=== PATIENT | female | born 1945 | race Caucasian/White ===

== ENCOUNTER 2017-11-21 19:28 | Emergency (ER) | payer MEDICARE, OTHER ==
[2017-11-21 20:00] VITALS: BP 155/80
--- NOTE | 2017-11-21 20:57 | UC ---
Hip/Pelvis Pain - HPI Summary HPI Summary: Patient presents with right hip and leg pain after falling this morning while bowling. Can ambulate but with pain. 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 Onset/Duration: Sudden Onset, Lasting Hours, Still Present Timing: Constant Severity Initially: Moderate Severity Currently: Moderate Pain Intensity: 8 Pain Scale Used: 0-10 Numeric Character Of Pain: Sharp Aggravating Factor(s): Movement, Weight Bearing Alleviating Factor(s): Rest Associated Signs And Symptoms: Negative: Swelling, Redness, Bruising, Knee Pain - Allergies/Home Medications Allergies/Adverse Reactions: Allergies Allergy/AdvReac Type Severity Reaction Status Date / Time No Known Allergies Allergy Verified 11/21/17 20:01 Home Medications: Home Medications Acetaminophen TAB* [Tylenol TAB*] 500 mg PO Q4H PRN 11/21/17 [History Confirmed 11/21/17] PMH/Surg Hx/FS Hx/Imm Hx Endocrine History: Dyslipidemia Cardiovascular History: Hypertension - Surgical History Surgical History: Yes Surgery Procedure, Year, and Place: lumpectomy x 4 to both breasts which were benign; left hip replacement 2012 [facility] [place] colonoscopy - Family History Known Family History: Positive: Cardiac Disease, Hypertension, Renal Disease - kidney stones, father - Social History Alcohol Use: None Substance Use Type: None Smoking Status (MU): Light Every Day Tobacco Smoker Type: Cigarettes Amount Used/How Often: occassionally one cigarette per day Length of Time of Smoking/Using Tobacco: Since she was 16 years old Have You Smoked in the Last Year: Yes When Did the Patient Quit Smoking/Using Tobacco: December 2013 Household Exposure Type: Cigarettes - Immunization History Most Recent Influenza Vaccination: Fall 2014 Most Recent Tetanus Shot: UNKNOWN Most Recent Pneumonia Vaccination: 2014 Review of Systems Constitutional: Negative Skin: Negative Respiratory: Negative Cardiovascular: Negative Gastrointestinal: Negative Musculoskeletal: Arthralgia, Decreased ROM All Other Systems Reviewed And Are Negative: Yes Physical Exam Triage Information Reviewed: Yes Appearance: Well-Appearing, Well-Nourished, Pain Distress - mod Vital Signs: Initial Vital Signs Temp 98.7 F 11/21/17 19:55 Pulse 70 11/21/17 19:55 Resp 16 04/18/18 19:55 BP 155/80 11/21/17 19:55 Pulse Ox 97 11/21/17 19:55 Vital Signs Reviewed: Yes Eyes: Positive: Conjunctiva Clear ENT: Positive: Hearing grossly normal Neck: Positive: Supple Respiratory: Positive: No respiratory distress, No accessory muscle use Cardiovascular: Positive: Pulses Normal Abdomen Description: Positive: Soft Musculoskeletal: Positive: No Edema, ROM Limited @ - right hip, Other: - TTP RIGHT POSTERIOR THIGH Neurological: Positive: Alert Psychological: Positive: Age Appropriate Behavior Skin: Negative: rashes Diagnostics - Radiology RIGHT HIP AND FEMUR XRAYS Xray Interpretation: No Acute Changes Radiology Interpretation Completed By: Radiologist Hip Injury Course/Dx - Differential Dx/Diagnosis Provider Diagnoses: RIGHT HIP CONTUSION Discharge - Sign-Out/Discharge Documenting (check all that apply): Discharge - Discharge Plan Condition: Stable Disposition: HOME Patient Education Materials: Hip Contusion (ED) Referrals: Maximiliano Carlson MD [Medical Doctor] - If Needed Talha Velasco MD [Primary Care Provider] - If Needed Additional Instructions: X-rays today unremarkable. [id number] ibuprofen as needed for discomfort. Rest, ice. Follow-up with orthopedics if you're not improving over the next 1-2 weeks. - Billing Disposition and Condition Condition: STABLE Disposition: HOME
--- NOTE | 2017-11-21 21:33 | RAD ---
INDICATION: Fall, right hip pain. COMPARISON: Comparison is made with a prior study from October 31, 2013. TECHNIQUE: An AP view of the pelvis and frontal and lateral views of the right hip were obtained. FINDINGS: The bones are in normal alignment. No fracture is seen. There is [id number] osteoarthritic change in the right hip. The patient is status post total left hip replacement surgery. IMPRESSION: NO EVIDENCE FOR FRACTURE, IF THE PATIENT'S SYMPTOMS PERSIST RECOMMEND FOLLOW-UP IMAGING.
--- NOTE | 2017-11-21 21:36 | RAD ---
INDICATION: Right femur injury. TECHNIQUE: 2 views of the right femur were obtained. FINDINGS: The bones are normal alignment. No fracture is seen. IMPRESSION: NO EVIDENCE FOR FRACTURE.
== END 2017-11-21 22:09 | disposition home or self-care (01) ==
LOC: UCEAST 19:28
DX: S70.01XA Contusion of right hip, initial encounter (principal); W18.30XA Fall on same level, unspecified, initial encounter; Y93.54 Activity, bowling; Y92.39 Other specified sports and athletic area as the place of occurrence of the external cause; E78.5 Hyperlipidemia, unspecified; I10 Essential (primary) hypertension; Z96.642 Presence of left artificial hip joint; Z87.891 Personal history of nicotine dependence
CPT/HCPCS: 99211; G0463

== ENCOUNTER 2019-08-08 06:33 | Day surgery (SDC) | payer MEDICARE, OTHER ==
[~2019-08-08 06:33] MED LIST: Buffered Lidocaine 1% SYRIN* 1 ML/SYRINGE INTRADERM ONE; Dexamethasone TAB* 4 MG PO ONE; DiMENhydriNATE IV* 50 MG/ML VIAL IV PUSH PRN; HYDROmorphone INJ1* 1 MG/ML SYRINGE IV PRN; Lactated Ringers 1000 ML Bag* 1,000 ML IV SCH; Naloxone* 0.4 MG/ML 1 ML VIAL IV PRN; Ondansetron ODT TAB* 4 MG PO ONE; PROCHLORPERAZINE INJ 5 MG/ML 2 ML VIAL IV PRN; fentaNYL* 50 MCG/ML 2 ML VIAL (100 MCG VIAL) IV PRN; oxyCODONE TAB* 5 MG TAB PO PRN
[2019-08-08] MEDS ORDERED: Dexamethasone TAB* 4 MG ONE (06:45)
[2019-08-08] MEDS ORDERED: Ondansetron ODT TAB* 4 MG ONE (06:45)
[2019-08-08] MEDS ORDERED: Midazolam* 1 MG/ML 2 ML VIAL (2 MG) ONE (08:22)
[2019-08-08] MEDS ORDERED: fentaNYL* 50 MCG/ML 2 ML VIAL (100 MCG VIAL) ONE (08:22)
[2019-08-08] MEDS ORDERED: KETAMINE HCL* 50 MG/ML 10 ML VIAL ONE (08:22)
[2019-08-08] MEDS ORDERED: Propofol* 10 MG/ML 20 ML BTL ONE (08:48)
[2019-08-08] MEDS ORDERED: Ketorolac INJ* 30 MG/ML 1 ML VIAL ONE (08:48)
[2019-08-08] MEDS ORDERED: Lidocaine 2% PF * 5 ML VIAL ONE (08:48)
[2019-08-08] MEDS ORDERED: Phenylephrine 40 MCG/ML SYRINGE ONE (08:48)
[2019-08-08] MEDS ORDERED: Acetaminophen IV 1GM/100ML * 100 ML ONE (08:48)
[2019-08-08 10:17] VITALS: BP 137/87
--- NOTE | 2019-08-09 17:14 | OP ---
DATE OF OPERATION: 08/08/19 - [facility] DATE OF : 47 SURGEON: Kalyan Evangelista MD ANESTHESIA: General anesthetic with laryngeal mask airway. PRE-OP DIAGNOSES: Endometrial polyp and endometrial thickening on pelvic ultrasound and asymptomatic menopause. POST-OP DIAGNOSES: Endometrial polyp and endometrial thickening on pelvic ultrasound and asymptomatic menopause. Pending pathology. OPERATIVE PROCEDURE: Diagnostic hysteroscopy and D and C with removal of polypoid lesion, polypectomy. ESTIMATED BLOOD LOSS: None. FLUIDS: She received 1200 cc of IV fluid. URINE OUTPUT: Clear, about 50 cc of urine. FINDINGS: Hysteroscopic findings revealed an endometrial polypoid lesion, which filled the entire cavity. The endometrial lining, however, looked atrophied without any obvious lesions. The uterus was noted to be in an anteverted position and it sounded to 8 cm in length. DESCRIPTION OF PROCEDURE: The patient was taken to the operating room where she was identified. She was placed on the operating table where general anesthesia with laryngeal mask airway was obtained without difficulty. She was then placed in the dorsal lithotomy position, prepped and draped in normal sterile fashion. Attention was then brought onto the patient's perineum where the urethra was identified and catheterized with a straight catheter and drained of clear urine. At this point, a weighted speculum was inserted into the patient's vagina. The cervix was identified, it was grasped at the anterior lip with a single-tooth tenaculum. The uterus was then sounded. It was noted to be in an anteverted position and 8 cm in length. The cervix was dilated with Hegar dilators. Hysteroscope was introduced. Hysteroscopy revealed the findings as noted above. I then proceeded to perform a hysteroscopic polypectomy. The specimen was sent to Pathology after it was removed in total, and after the polypectomy, a second look of the endometrial cavity revealed an atrophic denuded endometrium with no other obvious lesions. I removed the hysteroscope from the patient's uterus and performed a sharp curettage. Another look with the hysteroscope revealed complete denudation of endometrial lining. At this point, all the instruments were removed from the patient's vagina and uterus. Sponge, lap, needle counts were correct x2. She was then transferred to the recovery room area in stable condition. [id number]/[facility] #: [id number] [facility]
== END 2019-08-08 10:48 | disposition home or self-care (01) ==
LOC: OR 06:33
PROVIDERS: ATTEND Obstetrics & Gynecology
DX: N84.0 Polyp of corpus uteri (principal); Z78.0 Asymptomatic menopausal state; R93.89 Abnormal findings on diagnostic imaging of other specified body structures; I10 Essential (primary) hypertension; I73.9 Peripheral vascular disease, unspecified; I65.29 Occlusion and stenosis of unspecified carotid artery; E78.2 Mixed hyperlipidemia; I25.10 Atherosclerotic heart disease of native coronary artery without angina pectoris; F17.210 Nicotine dependence, cigarettes, uncomplicated
CPT/HCPCS: 88305; A9270-GY; J1885; J2250; J2704; J3010; J8540